=== PATIENT | female | born 1935 | race African-American/Black ===

== ENCOUNTER → 2021-08-02 | Outpatient (CLI) | payer BC ==
[~2021-08-02] MED LIST: IOHEXOL 300 MG/ML 100ML VIAL. IV ONE
[2021-08-02 08:46] LABS: CREATININE 1.2 mg/dL (0.6-1.0); GFR 51.4
--- NOTE | 2021-08-02 14:43 | RAD ---
STUDY: CT angiography of the neck INDICATION: Carotid stenosis per COMPARISON: None. TECHNIQUE: Axial CT imaging of the neck utilizing angiography protocol and performed after the intrav enous administration of 60 cc Omnipaque 300 contrast. Multiplanar reformats and 3D MIP acquisitions w ere obtained. Encountered areas of stenosis are measured per NASCET criteria. One or more of the following individualized dose reduction techniques were utilized for this examinat ion: 1. Automated exposure control 2. Adjustment of the mA and/or kV according to patient size 3. Use of iterative reconstruction technique. FINDINGS: CTA NECK: Arch/Proximal Great Vessels: No dissection or aneurysm at the aortic arch. Calcified and noncalcified atheromatous plaque at the proximal aspect of the left subclavian artery with no more than 20 percen t stenosis, image 38 series 3. Common origin of the brachiocephalic and left common carotid arteries. The more distal subclavian arteries are widely patent. Development of calcified more so than noncalc ified atheromatous plaque at the far distal common carotid arteries extending up along the bifurcatio n. Carotid Bifurcation/Cervical ICA: Dense calcific plaque at the right carotid bifurcation with a nomin al luminal dimension of 1.5 mm. Per NASCET criteria this corresponds to an approximate 70% stenosis. Combination of calcified and noncalcified atherosclerotic plaque along the left carotid bifurcation t o involve a portion of the bulb also with a nominal luminal diameter of 1.5 mm in keeping with an crystal roximate 70% stenosis. Approximately 50 percent stenosis at the right ECA origin. 30-40 percent steno sis at the left ECA origin. Vertebral Arteries: The right vertebral artery is dominant. Estimated 50 to 60% stenosis at both vert ebral artery origins. 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 Visualized Intracranial Vasculature: The nondominant left intracranial vertebral artery becomes even smaller in caliber after the takeoff of the PICA but remains patent to the basilar artery. The domina nt right intracranial vertebral artery provides the majority of flow to the basilar artery. The basil ar artery is patent. physiology on the right. The proximal posterior cerebral artery segments a re patent. Intracranial carotid artery calcific atherosclerosis. There is a component of noncalcified plaque on the left. No significant stenosis on the right. Up to 30 percent short segment stenosis al rosa the clinoid segment on the left. Small ACOM infundibulum as seen on images 257 and 258 series 3. The central middle and anterior cerebral artery segments are patent. MISCELLANEOUS: No significant incidental soft tissue findings throughout the neck or upper mediastinum. Multilevel c ervical spondylosis without evidence for severe narrowing of the central canal. Osseous neural forami nal stenosis is greatest on the right at C3-C4. IMPRESSION: 1. Approximate 70% stenosis of both carotid arteries on the right occurring essentially at the bifur cation and on the left at the most proximal aspect of the carotid bulb. 2. Estimated 50-60% stenosis at both vertebral artery origins. The right vertebral artery is dominan t. Adequate flow throughout the rest of the extracranial vertebral arteries and partially assessed po sterior circulation. 3. Approximate 50% stenosis at the right ECA origin and 30-40% stenosis at the left ECA origin. Electronically signed by: NICOLE LOVE MD (08/02/2021 2:41 PM) [facility]
== END ==
LOC: CT 08:14
PROVIDERS: ATTEND Surgery Vascular Surgery
DX: I65.23 Occlusion and stenosis of bilateral carotid arteries (principal); I65.03 Occlusion and stenosis of bilateral vertebral arteries; I70.8 Atherosclerosis of other arteries; M47.812 Spondylosis without myelopathy or radiculopathy, cervical region
CPT/HCPCS: 36415; 70498; 82565; Q9967